=== PATIENT | male | born 1940 | race Caucasian/White ===

== ENCOUNTER → 2017-06-08 | Outpatient (CLI) | payer MEDICARE | END | disposition home or self-care (01) | LOC: RAD 09:16 | PROVIDERS: ATTEND Internal Medicine | DX: K22.8 Other specified diseases of esophagus (principal) | CPT/HCPCS: 74220 ==

== ENCOUNTER 2019-12-05 12:53 | Observation (INO) | payer MEDICARE ==
[~2019-12-05] VITALS: Ht 170.2 cm; Wt 101.2 kg
--- NOTE | 2019-12-05 13:14 | NUR ---
PT STATES "MY LEGS GAVE OUT ON ME" ("IT WAS HARD TO MOVE THEM") WHILE ON A WALK W/ HIS SPOUSE. DENIES FALLING. SAT ON SIDEWALK. EMS CALLED FOR ASSISTANCE. STATES HE TRIPPED ON GARAGE STEP & FELL ON BUTTOCKS LAST WEEK; WAS ABLE TO WALK AFTER INCIDENT. DENIES PAIN, NUMBNESS, TINGLING TO LEGS. USES A CANE WHEN OUTSIDE. HX LT HIP SURGERY 2017, RT KNEE SURGERY OVER 2019.
[2019-12-05] MEDS ORDERED: FINA5TAB4 PO (13:24)
[2019-12-05] MEDS ORDERED: TERA5CAP3 PO (13:24)
[2019-12-05] MEDS ORDERED: VITAMIN D (13:25)
[2019-12-05 14:21] LABS: BASOPHILS # (AUTO) 0.01 x10^3/uL (0-0.1); BASOPHILS % (AUTO) 0 % (0-1); EOSINOPHILS # (AUTO) 0.05 x10^3/uL (0-0.4); EOSINOPHILS % (AUTO) 1 % (1-7); LYMPHOCYTES # (AUTO) 0.92 x10^3/uL (1-3.4); LYMPHOCYTES % (AUTO) 11 % (22-44); MD NO; MEAN CORPUSCULAR HEMOGLOBIN 31.1 pg (27.5-34.5); MEAN CORPUSCULAR HGB CONC 33.4 g/dL (33.2-36.2); MEAN CORPUSCULAR VOLUME 93.2 fL (81-97); MEAN PLATELET VOLUME 8.8 fL (7.4-10.4); MONOCYTES # (AUTO) 0.38 x10^3/uL (0.2-0.8); MONOCYTES % (AUTO) 5 % (2-9); NEUTROPHILS # (AUTO) 7.24 x10^3/uL (1.8-6.8); NEUTROPHILS % (AUTO) 84 % (42-75); PLATELET COUNT 142 x10^3/uL (130-400); RED BLOOD COUNT 4.69 x10^6/uL (4.38-5.82); RED CELL DISTRIBUTION WIDTH 14.3 % (9.4-14.8)
[2019-12-05 14:27] LABS: ALANINE AMINOTRANSFERASE 22 U/L (12-78); ALBUMIN 3.8 g/dL (3.4-5.0); ANION GAP 8 mmol/L (5-15); CALCIUM 8.6 mg/dL (8.5-10.1); CHLORIDE 106 mmol/L (98-107)
[2019-12-05 14:32] LABS: ALKALINE PHOSPHATASE 67 U/L (45-117); BILIRUBIN,TOTAL 1.2 mg/dL (0.2-1.0); TOTAL PROTEIN 6.9 g/dL (6.4-8.2)
--- NOTE | 2019-12-05 15:58 | NUR ---
PT ABLE TO STAND AT BEDSIDE AND TAKE SIDE STEPS W/OUT DIFFICULTY; DENIES FEELING WEAK OR SHAKY IN LEGS.
[2019-12-05] MEDS ORDERED: ASPIRIN 81 MG TABLET CHEW PO ONE (16:30)
[2019-12-05] MEDS ORDERED: ASPIRIN 81 MG TABLET CHEW ONE (16:43)
--- NOTE | 2019-12-05 16:46 | NUR ---
ASA GIVEN PER EMAR
--- NOTE | 2019-12-05 16:53 | NUR ---
PT REPORT TO BREAK RN.
--- NOTE | 2019-12-05 17:16 | NUR ---
TASK RN: PT SITTING UP IN [facility], CHRIS NOTED. PWD. BP/SPO2/ECG MONITORING IN PLACE. NSR ON MONITOR. PT DENIES CP/NEED FOR PAIN MEDICATIONS. IV ESTABLISHED. PT AMBULATED STEADILY TO BATHROOM DOWN HALLWAY WO CO WEAKNESS/DIZZINESS/SOB. AWAITING ADMIT
--- NOTE | 2019-12-05 17:55 | NUR ---
ROOM ASSIGNMENT HELD. PER DR FAITH, PT NOW COVID R/O. PT AMBULATORY TO [facility] BR W/OUT INCIDENT; GAIT SLOW & STEADY. DENIES LIGHTHEADEDNESS, DIZZINESS W/ POSITION CHANGE.
--- NOTE | 2019-12-05 18:00 | NUR ---
DINNER TRAY ORDERED: GLUTEN-FREE, LACTOSE-FREE.
[2019-12-05] MEDS ORDERED: DOCUSATE 100 MG CAPSULE PO PRN (18:30)
[2019-12-05] MEDS ORDERED: ACETAMINOPHEN 325 MG TABLET PO PRN (18:30)
[2019-12-05] MEDS ORDERED: MELATONIN 5 MG TABLET PO PRN (18:30)
[2019-12-05] MEDS ORDERED: POLYETHYLENE GLYCOL 17 GM PACKET PO PRN (18:30)
[2019-12-05] MEDS ORDERED: ONDANSETRON 2MG/ML, 2ML IVPush PRN (18:30)
--- NOTE | 2019-12-05 18:30 | NUR ---
DINNER TRAY DELIVERED.
--- NOTE | 2019-12-05 19:07 | NUR ---
COVID SPECIMEN COLLECTED.
--- NOTE | 2019-12-05 19:16 | NUR ---
PT REPORT TO ELIJAH LYNN FOR ROOM [id number]
[2019-12-05] MEDS ORDERED: ENOXAPARIN 40 MG/0.4 ML ONE (19:21)
[2019-12-05] MEDS: ENOXAPARIN 40 MG/0.4 ML SQ SCH (19:25)
--- NOTE | 2019-12-05 19:27 | NUR ---
AMBULATORY TO [facility] W/OUT INCIDENT
[2019-12-05 20:21] VITALS: BP 132/71
[2019-12-05 20:23] VITALS: BP 140/82
[2019-12-05 20:26] VITALS: BP 127/69
[2019-12-05 20:42] LABS: TROPONIN I 0.133 ng/mL (0.000-0.045)
[2019-12-05] MEDS ORDERED: TERAZOSIN 5MG CAPSULE PO SCH (21:00)
[2019-12-05] MEDS ORDERED: FINASTERIDE 5 MG TABLET PO SCH (21:00)
[2019-12-06] VITALS (7 sets, daily range): BP systolic 117–167; BP diastolic 69–93
[2019-12-06 02:25] LABS: BASOPHILS # (AUTO) 0.01 x10^3/uL (0-0.1); BASOPHILS % (AUTO) 0 % (0-1); EOSINOPHILS % (AUTO) 2 % (1-7); LYMPHOCYTES # (AUTO) 1.35 x10^3/uL (1-3.4); LYMPHOCYTES % (AUTO) 23 % (22-44); MD NO; MEAN CORPUSCULAR HEMOGLOBIN 31.2 pg (27.5-34.5); MEAN CORPUSCULAR HGB CONC 33.9 g/dL (33.2-36.2); MEAN CORPUSCULAR VOLUME 92.2 fL (81-97); MEAN PLATELET VOLUME 8.6 fL (7.4-10.4); MONOCYTES # (AUTO) 0.52 x10^3/uL (0.2-0.8); MONOCYTES % (AUTO) 9 % (2-9); NEUTROPHILS % (AUTO) 67 % (42-75); PLATELET COUNT 138 x10^3/uL (130-400); RED BLOOD COUNT 4.43 x10^6/uL (4.38-5.82); RED CELL DISTRIBUTION WIDTH 14.4 % (9.4-14.8)
[2019-12-06 02:37] LABS: ALANINE AMINOTRANSFERASE 22 U/L (12-78); ALBUMIN 3.5 g/dL (3.4-5.0); ANION GAP 7 mmol/L (5-15); CALCIUM 8.6 mg/dL (8.5-10.1); CHLORIDE 107 mmol/L (98-107); CREATININE 0.87 mg/dL (0.7-1.3)
[2019-12-06 02:47] LABS: ALKALINE PHOSPHATASE 62 U/L (45-117); BILIRUBIN,TOTAL 1.4 mg/dL (0.2-1.0); TOTAL PROTEIN 6.4 g/dL (6.4-8.2)
[2019-12-06 02:50] LABS: TROPONIN I 0.073 ng/mL (0.000-0.045)
[2019-12-06] MEDS ORDERED: GADOTERATE 7.5 MMOL/15 ML SYR ONE (17:23)
[2019-12-06] MEDS: ENOXAPARIN 40 MG/0.4 ML SQ SCH (18:11)
== END 2019-12-06 18:28 | disposition home or self-care (01) ==
LOC: ED 15:34 → INTOOBSV 16:18 → EDIP 16:18 → 4NW 19:44
PROVIDERS: ADMIT Internal Medicine; ATTEND Internal Medicine
DX: Z03.818 Encounter for observation for suspected exposure to other biological agents ruled out (principal); R53.1 Weakness; G31.1 Senile degeneration of brain, not elsewhere classified; R79.89 Other specified abnormal findings of blood chemistry; E80.6 Other disorders of bilirubin metabolism; N40.0 Benign prostatic hyperplasia without lower urinary tract symptoms; I10 Essential (primary) hypertension; E11.9 Type 2 diabetes mellitus without complications; R53.83 Other fatigue; M51.17 Intervertebral disc disorders with radiculopathy, lumbosacral region; E80.4 Gilbert syndrome; I95.2 Hypotension due to drugs
CPT/HCPCS: 36415; 70450; 70553; 71045; 72131; 80053; 82607; 84443; 84484; 85025; 93005; 93306; 96372; 99285; A9575; G0378; J1650; U0001